=== PATIENT | male | born 1950 | race African-American/Black ===

== ENCOUNTER → 2016-10-23 | Outpatient (CLI) | payer MEDICARE, OTHER | LOC: RAD 14:49 | PROVIDERS: ATTEND Internal Medicine Medical Oncology | DX: C90.00 Multiple myeloma not having achieved remission (principal) | CPT/HCPCS: 77075 ==

== ENCOUNTER → 2016-11-19 | Outpatient (CLI) | payer MEDICARE, OTHER | LOC: RAD 10:39 | PROVIDERS: ATTEND Internal Medicine Medical Oncology | DX: R10.9 Unspecified abdominal pain (principal) | CPT/HCPCS: 76705 ==

== ENCOUNTER → 2017-11-30 | Outpatient (CLI) | payer MEDICARE, OTHER ==
--- NOTE | 2017-12-01 09:15 | RADIOLOGY REPORT (SQ) ---
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 LIMITATIONS: None. FINDINGS: LATERAL SKULL: Multiple tiny lytic lesions, stable. AP BOTH HUMERI: Multiple tiny lytic lesions, stable. TWO-VIEW LUMBAR SPINE: Stable L4 50% compression deformity. TWO-VIEW THORACIC SPINE: Stable T7 50% compression deformity. AP PELVIS: Stable tiny lytic lesions in the pelvis AP BOTH FEMURS: Stable tiny lytic lesions in the bilateral proximal femoral medullary spaces OTHER: No other significant finding. IMPRESSION: Similar appearance compared to 10/23/2016 TECHNICAL DOCUMENTATION: JOB ID: [id number] [employer]- All Rights Reserved Reading location - IP/workstation name: [email or web address]
== END ==
LOC: RAD 14:48
PROVIDERS: ATTEND Internal Medicine Medical Oncology
DX: C90.00 Multiple myeloma not having achieved remission (principal)
CPT/HCPCS: 77075

== ENCOUNTER → 2018-03-28 | Outpatient (CLI) | payer MEDICARE, OTHER ==
--- NOTE | 2018-03-29 10:28 | RADIOLOGY REPORT (SQ) ---
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 RADIONUCLIDE AND DOSE: 10.0 mCi F18 FDG The route of agent administration: Intravenous FASTING BLOOD SUGAR: 90 mg/dl CONTRAST TYPE AND DOSE: No CT contrast given. TECHNIQUE: Blood glucose level was verified. Above dose of FDG was injected intravenously. 2-D seg mented attenuation correction images were obtained through the entire body. Noncontrast CT images we re obtained for attenuation correction and fusion with emission images. CT images were performed wit hout oral or intravenous contrast and are not sensitive for parenchymal lesions. A series of overlap ping emission PET images were obtained. Images reviewed and manipulated at independent work station by the radiologist. Images stored on PACS. LIMITATIONS: None. FINDINGS: HEAD AND NECK: No areas of abnormal metabolic activity in the soft tissues of the head and neck. CHEST: No areas of abnormal metabolic activity in the chest. ABDOMEN AND PELVIS: No areas of abnormal metabolic activity in the abdomen or pelvis. Expected physi ologic activity is present in the genitourinary system and bowel. LOWER EXTREMITIES: No areas of abnormal metabolic activity in the soft tissues of the lower extremiti es. BONES: No abnormal metabolic activity in the visualized skeleton. ADDITIONAL CT FINDINGS: Numerous lytic lesions throughout the skeleton. No additional significant fi ndings on the noncontrast CT images. OTHER: No other significant findings. Background blood pool activity mean SUV 2.0. Background liver activity mean SUV 2.44. IMPRESSION: 1. UNREMARKABLE PET SCAN. NO AREAS OF ABNORMAL INCREASED METABOLIC ACTIVITY. 2. NUMEROUS LYTIC LESIONS THROUGHOUT THE SKELETON SECONDARY TO KNOWN MYELOMA. NO OTHER SIGNIFICANT C T FINDINGS. TECHNICAL DOCUMENTATION: JOB ID: [id number]- All Rights Reserved Reading location - IP/workstation name: [email or web address]
== END ==
LOC: RAD 16:10
PROVIDERS: ATTEND Internal Medicine Medical Oncology
DX: C90.00 Multiple myeloma not having achieved remission (principal)
CPT/HCPCS: 78816; A9552

== ENCOUNTER → 2018-09-20 | Outpatient (CLI) | payer MEDICARE, OTHER ==
--- NOTE | 2018-09-20 16:35 | RADIOLOGY REPORT (SQ) ---
EXAM DESCRIPTION: BONE SURVEY COMPLETE COMPLETED DATE/TIME: 09/20/2018 3:44 pm REASON FOR STUDY: DISORDER OF BONE, UNSPECIFIED M89.9 DISORDER OF BONE, UNSPECIFIED COMPARISON: PET-CT 03/28/2018 Whole-body radiographic skeletal survey 11/30/2017, 10/23/2016, 04/27/2015 TECHNIQUE: Images of the axial and proximal appendicular skeleton are obtained, along with lateral s kull and frontal chest films. LIMITATIONS: None. FINDINGS: AP CHEST: Old right post thoracotomy changes. No acute infiltrates. No cardiomegaly. Le ft-sided permanent central line tip superior vena cava LATERAL SKULL: Punctate lytic lesions over the calvarium are stable AP BOTH HUMERI: Punctate lytic lesions over the bilateral humeri are stable TWO-VIEW LUMBAR SPINE: Stable 50% compression deformity at L4, unchanged from 11/30/2017 TWO-VIEW THORACIC SPINE: Stable 50% compression of T7, unchanged from 11/30/2017 AP PELVIS: No worrisome bone lesions. AP BOTH FEMURS: Punctate lytic lesions over the bilateral femurs are stable OTHER: Left permanent central line tip superior vena cava IMPRESSION: Stable skeletal survey compared to 03/28/2018 and 11/30/2017. TECHNICAL DOCUMENTATION: JOB ID: [id number] [employer]- All Rights Reserved Reading location - IP/workstation name: [email or web address]
== END ==
LOC: RAD 14:52
PROVIDERS: ATTEND Internal Medicine Medical Oncology
DX: M89.9 Disorder of bone, unspecified (principal); Z85.79 Personal history of other malignant neoplasms of lymphoid, hematopoietic and related tissues
CPT/HCPCS: 77075